=== PATIENT | female | born 1965 | race Caucasian/White ===

== ENCOUNTER 2024-08-18 12:02 | Emergency (ER) | payer BC, SELFPAY ==
[2024-08-18 12:17] VITALS: BP 123/74
--- NOTE | 2024-08-18 16:15 | ED.GENMED ---
History of Present Illness
<Keli Sherman PA-C - Last Filed: 08/20/24 01:18>
General
Chief Complaint: Abdominal Pain
Source: patient
Exam Limitations: none
Time Seen by Provider: 08/18/24 15:16
Nursing documentation reviewed up to this point in time: agreed with
History of Present Illness
History of Present Illness:
Patient is a 59 year old female presenting for evaluation of new 'lump' in left pelvis. Patient states that she initially noticed this lump on 08/07/24 when she was standing in the shower. She states she can only feel this on while she is
standing. She denies any associated tenderness of lump. She was seen by her primary care provider few days ago where an outpatient ultrasound was ordered. However�patient is unable to get an appoint meant for an ultrasound for many weeks and came
to the emergency department for further evaluation.
She has had some intermittent diarrhea and constipation for the past few days. She denies any associated fever, chills, urinary discomfort/difficulty. Mild intermittent gas pains. No rectal bleeding. No melena.
Patient has no history of hernias although is concerned that this might be a hernia.
Review of Systems
<Keli Sherman PA-C - Last Filed: 08/20/24 01:18>
Review of Systems
Allergies reviewed?: Yes
All Other Systems: ROS reviewed and negative except as documented in HPI and ROS
Phy Exam
<Keli Sherman PA-C - Last Filed: 08/20/24 01:18>
Physical Exam
Physical Exam:
Vitals: Patient's vital signs are stable. Afebrile
General: Patient is well appearing, no acute distress. Nontoxic appearing
Skin: Warm and dry, no rashes or lesions
Head: Normocephalic, atraumatic
Eyes: Sclera nonicteric. EOMs intact. No nystagmus.
Throat: Protecting airway
Neck: Normal ROM, no cervical spine tenderness, no meningismus
Cardiac: Regular rate and rhythm, no murmurs.
Pulm: Normal respiratory effort, no wheezes, rales, rhonchi heard on exam.
Abdomen: Abdomen soft and nontender. Soft, nontender reducible hernia just superior to left inguinal ligament. No overlying erythema or warmth
Extremities: No evidence of cyanosis or edema. Palpable DP pulses
Neuro: AAOx3. CN II-XII intact. No focal neurologic deficits.
Psychiatric: Normal affect.
Course
<Keli Sherman PA-C - Last Filed: 08/20/24 01:18>
Orders/Labs/Results
Orders:
Orders
08/18/24 16:58
Basic Metabolic Panel Urgent
Complete Blood Count/With Diff Urgent
Manual Differential Urgent
Abnormal Lab Results
08/18/24
16:58
RBC 4.18 L 10^6/uL
(4.20-5.40)
Hgb 11.9 L g/dL
(12.0-16.0)
Hct 35.6 L %
(37.0-47.0)
08/18/24 16:58
08/18/24 16:58
Vital Signs
Initial and Last Documented VS:
Initial Vital Signs
Temp Pulse Resp BP Pulse Ox
98.1 F 58 16 123/74 100
08/18/24 12:17 08/18/24 12:17 08/18/24 12:17 08/18/24 12:17 08/18/24 12:17
Last Documented Vital Signs
Temp Pulse Resp BP Pulse Ox
98.1 F 76 16 126/70 97
08/18/24 12:17 08/18/24 19:10 08/18/24 19:10 08/18/24 19:10 08/18/24 19:10
<Shay Boogie DO - Last Filed: 08/18/24 18:34>
Orders/Labs/Results
Orders:
Orders
08/18/24 16:58
Basic Metabolic Panel Urgent
Complete Blood Count/With Diff Urgent
Manual Differential Urgent
Abnormal Lab Results
08/18/24
16:58
RBC 4.18 L 10^6/uL
(4.20-5.40)
Hgb 11.9 L g/dL
(12.0-16.0)
Hct 35.6 L %
(37.0-47.0)
08/18/24 16:58
08/18/24 16:58
Vital Signs
Initial and Last Documented VS:
Initial Vital Signs
Temp Pulse Resp BP Pulse Ox
98.1 F 58 16 123/74 100
08/18/24 12:17 08/18/24 12:17 08/18/24 12:17 08/18/24 12:17 08/18/24 12:17
Last Documented Vital Signs
Temp Pulse Resp BP Pulse Ox
98.1 F 76 16 126/70 97
08/18/24 12:17 08/18/24 19:10 08/18/24 19:10 08/18/24 19:10 08/18/24 19:10
<Keli Sherman PA-C - Last Filed: 08/20/24 01:18>
MDM/Problems Addressed
Differential Diagnosis Includes:
Not limited to: Hernia, incarcerated hernia, lipoma, cyst, etc.
MDM/Problems Addressed:
59-year-old female presenting with nontender bulge in left groin which she has noticed for the past 2 weeks. She only notices lump when standing. No associated tenderness or redness. No associated fever. Patient stable vital signs and is
afebrile on arrival. On exam�patient abdomen is soft and nontender. She does have a clear hernia which is easily reducible in left inguinal region. No evidence of incarceration. No overlying erythema, warmth to suggest infectious process.
Cardio/pulmonary assessment unremarkable. Patient otherwise very well-appearing in no apparent distress. Discussed nonemergent nature of reducible hernias and follow-up with general surgery. However�patient concerned of possible infectious
process for which screening labs were obtained without any clinically significant abnormalities. Advised follow-up with general surgery outpatient. No indication for CT scan today. Advised against heavy lifting or straining. Return precautions
discussed. Patient seen with attending physician
Chronic conditions affecting care:
N/A
Acute Exacerbation and/or Progression of Chronic Illness:
N/A
<Keli Sherman PA-C - Last Filed: 08/20/24 01:18>
*Pulse Oximetry
Patient hypoxic: no
*EKG
Interpreted by ED Provider?: NA
*Circuitry Negative Inspector Interpretation
Rate: Circuitry Negative Inspector- N/A
*Critical Care Note
Total Time (30-74mins, 75-104mins- exclusive of procedures): Not Applicable
ED Attending Note
<Keli Sherman PA-C - Last Filed: 08/20/24 01:18>
-
Portions of this chart may have been created with voice recognition software.� Occasional wrong word or��sound alike� substitutions may have occurred due to the inherent limitations of voice recognition software.
<Shay Boogie DO - Last Filed: 08/18/24 18:34>
ED Attending Note
Patient seen and examined by attending physician: Yes
I performed the substantive portion of visit, reviewed & personally made and approve the management plan that is documented in note by myself or LYDIA.: Yes
ED Attending Note:
History as above. Clearly with a hernia on exam that I was able to repair reduce while standing. Will refer to surgery as outpatient
Discharge Plan
Departure
Patient Disposition: Home (Routine Discharge)
Date of Disposition: 08/18/24
Time of Disposition: 18:44
Patient with high blood pressure during this ER visit?: No
Condition: Good
Covid-19: Not Applicable
Discharge Problem:
Inguinal hernia, left
Instructions: Groin hernias
Referrals:
Farzaneh Buchanan MD [Family Provider] -
Dom Presley MD [Active] - Next open appointment
Activity Restrictions/Additional Instructions:
RETURN TO THE EMERGENCY DEPARTMENT WITH ANY FEVERS, SEVERE ABDOMINAL PAIN, INTRACTABLE NAUSEA/VOMITING, DIFFICULTY URINATING, WORSENING IN CURRENT SYMPTOMS OR ANY OTHER CONCERNS
-As discussed�you were found to have a reducible hernia today in the emergency department. You should avoid any heavy lifting or straining.
-You should follow-up with general surgery for further evaluation/management.
Monitor symptoms closely and return to the emergency department with any acute worsening/new symptoms or any severe pain/infectious symptoms.
Interventions
Interventions:
*Risk Screen - Suicide Last Done: 08/18/24 12:17
*General Assessment Last Done: 08/18/24 12:17
*Neglect/Abuse Screening Last Done: 08/18/24 12:17
ED- Fall Risk Assessment Last Done: 08/18/24 18:00
*ED COVID-19 Vaccine History Last Done: 08/18/24 12:17
*Nursing Disposition Last Done: 08/18/24 19:10
[id number]-[id number] Assessment Last Done: 08/18/24 18:00
Discharge Date and Time
Discharge Date/Time: 08/18/24 19:10
Print Language: NAMIBIAN
[2024-08-18 17:47] LABS: Hematocrit 35.6 % (37.0-47.0); Hemoglobin 11.9 g/dL (12.0-16.0); Mean Corp Hgb Conc. 33.4 g/dL (33.0-37.0); Mean Corpuscular Hgb 28.5 pg (27.0-31.0); Mean Corpuscular Volume 85.2 fL (81.0-99.0); Mean Platelet Volume 9.5 fL (7.4-10.4); Platelet Count 236 10^3/uL (130-400); Red Blood Cell Count 4.18 10^6/uL (4.20-5.40); Red Cell Dist. Width 13.2 % (11.5-14.5); White Blood Cell Count 5.6 10^3/uL (4.8-10.8)
[2024-08-18 17:58] LABS: Blood Urea Nitrogen 14 mg/dl (7-17); Calcium 9.3 mg/dl (8.4-10.2); Carbon Dioxide 27 mmol/L (22-30); Chloride 102 mmol/L (98-107); Glucose 85 mg/dl (70-99); Potassium 3.9 mmol/L (3.5-5.1); Sodium 137 mmol/L (135-145); eGFR > 60.00
[2024-08-18 18:07] LABS: Absolute Neutrophils -Man Diff 2.8 10^3/uL (1.4-6.5); Band Neutrophils 0 % (0-3); Eosinophils 2 % (0-6); Lymphocytes 44 % (20-51); Monocytes 3 % (2-9); Normal RBC Morphology Yes; Platelets Checked Yes; Segmented Neutrophils 51 % (42-75); Total Cells Counted 100
[2024-08-18 19:10] VITALS: BP 126/70
== END 2024-08-18 19:10 | disposition home or self-care (01) ==
LOC: EMR 12:02
PROVIDERS: Physician Assistant; EMERGENCY PHYSICIAN Emergency Medicine; FAMILY PHYSICIAN Family Medicine
DX: K40.90 Unilateral inguinal hernia, without obstruction or gangrene, not specified as recurrent (principal)
CPT/HCPCS: 99283; 80048; 85025

== ENCOUNTER → 2024-12-13 09:30 | Outpatient (REF) | payer BC, SELFPAY | LOC: HWWDC 09:30 | PROVIDERS: ATTENDING PHYSICIAN Family Medicine; REFERRING PHYSICIAN Obstetrics & Gynecology | DX: Z12.31 Encounter for screening mammogram for malignant neoplasm of breast (principal) | CPT/HCPCS: 77063; 77067 ==